=== PATIENT | male | born 1970 | race Caucasian/White ===

== ENCOUNTER 2022-06-28 15:40 | Emergency (ER) | payer BC, SELFPAY ==
[2022-06-28 15:49] VITALS: BP 165/99; PULSE 86; RESP 19; TEMP 36.7; O2SAT 96; BMI 28.7
--- NOTE | 2022-06-28 16:39 | HMH.EDGENADL ---
Discharge Plan Disposition Patient Disposition: Home, Self-Care Condition: Good Prescriptions Prescriptions: New erythromycin 5 mg/gram (0.5 %) ointment 1 applic ophthalmic (eye) TID Qty: 3.5 0RF Referrals Follow up/Referrals: Diogo Nichols MD [Primary Care Provider] - See instructions Clinical Impressions Clinical Impression: Corneal abrasion Instructions Patient Instructions: DI for Eye Pain Discharge ED Provider: Shorty Patel General Adult HPI General Chief complaint: Eye Problems Stated complaint: AO06/28 FB in LT eye Time Seen by Provider: 06/28/22 16:02 Mode of Arrival: Ambulatory Source of Information: Patient Limitations: No Limitations Description of Symptoms (Recalled from ER Triage Doc. by RN): pt comes in with c/o eye irritation. pt was cutting brush approx 1 hour prior to arrival. pt states that he feels like there is a scratch or something in his eye. pt tried to rinse eye out with natalia doris contact solution and did not have much effect. R eye 20/40. L eye 20/50 History of Present Illness HPI narrative: 52yo M presents to the ER secondary to left eye irritation. Reports he was cutting brush approximate 1 hour prior to arrival when he felt a piece of brush strike his eye. Complains of mild irritation to his left eye. Does not wear glasses or contacts. No previous eye surgery. Last saw optometry 6 months ago Related Data Previous Rx's Medication Instructions Recorded erythromycin 5 mg/gram (0.5 %) eye 1 applic ophthalmic (eye) TID #3.5 06/28/22 ointment grams Allergies Allergy/AdvReac Type Severity Reaction Status Date / Time Penicillins Allergy Verified 06/28/22 16:02 [facility] Disclaimer: The information contained in this section may have been updated after the patient was seen, as this information can be updated by other users. Social History Smoking Status: Former smoker alcohol intake: never current occupational status: employed Travel in the last 8 weeks: None ROS Obtained: Yes Systems reviewed as appropriate & no additional complaints except as documented Physical Exam General General appearance: alert and in no apparent distress Head Head exam: atraumatic Eye Eye exam: Present normal appearance, PERRL and EOMI; Absent scleral icterus, conjunctival redness or conjunctival injection Expanded Eye Exam Eyelids: bilateral: normal inspection Pupils: Bilateral: regular, round Sclera/Conjunctival: bilateral: normal inspection Anterior chamber: bilateral: normal inspection Comment: Fluorescein stain performed to the left eye. Moderate-sized corneal abrasion at 6:00 Neck Neck exam: Present full ROM and trachea midline Respiratory Respiratory exam: Present normal lung sounds bilaterally; Absent respiratory distress Cardiovascular Cardiovascular exam: Present regular rate, normal rhythm and normal heart sounds Abdominal Exam Abdominal exam: Present soft Neurological Exam Neurological exam: Present alert and oriented X3 Skin Skin exam: Present warm and dry Medical Decision Making Joel Inquiry Pt receiving controlled substance: No Vital Signs: 06/28/22 15:49 Temperature 98.0 F Temperature Source Oral Pulse Rate [Left] 86 Respiratory Rate 19 Blood Pressure [Right Arm] 165/99 H Blood Pressure Mean [Right Arm] 121 02 Sat by Pulse Oximetry 96 Medical Decision Narrative: 52-year-old male evaluated for left eye irritation after cutting brush. Visual acuity as documented above. No gross finding on exam. Fluorescein stain applied reveals moderate-sized corneal abrasion at 6 PM. Treated with erythromycin ointment in the ER and a prescription for the same provided. Stressed the importance of seeing optometry/ophthalmology before the weekend. Patient voiced understanding Procedures Eye Exam/FB Removal Location: eye (L) Topical anesthetic used: proparacaine Fluorescein Stick(s) used: Yes
[2022-06-28 17:00] VITALS: BP 151/101; PULSE 78; RESP 19; TEMP 36.7; O2SAT 97
== END 2022-06-28 17:03 | disposition home or self-care (01) ==
PROVIDERS: Emergency Provider Family Medicine; PCP Family Medicine
DX: S05.02XA Injury of conjunctiva and corneal abrasion without foreign body, left eye, initial encounter (principal); W45.8XXA Other foreign body or object entering through skin, initial encounter
CPT/HCPCS: 99283

== ENCOUNTER 2023-10-10 05:56 | Emergency (ER) | payer BC, SELFPAY ==
[2023-10-10 06:05] VITALS: BP 148/91; PULSE 74; RESP 18; TEMP 36.7; O2SAT 95; BMI 27.0
--- NOTE | 2023-10-10 06:26 | HMH.EDGENADL ---
Discharge Plan Disposition Patient Disposition: Home, Self-Care Condition: Good Prescriptions Prescriptions: New cefdinir 300 mg capsule 300 mg PO BID 5 Days Qty: 10 0RF No Action sildenafil 100 mg tablet 100 mg PO PRN Patient Comments: TAKE 1/2 TO 1 (ONE-HALF TO ONE) TABLET BY MOUTH ONCE DAILY NEEDED FOR ERECTILE DYSFUNCTION lisinopril 20 mg tablet 20 mg PO DAILY Patient Comments: TAKE 1 TABLET BY MOUTH ONCE DAILY famotidine 20 mg tablet 20 mg PO DAILY PRN ciprofloxacin-dexamethasone 0.3-0.1 % drops,suspension 4 drp otic (ear) BID 7 Days Qty: 7.5 0RF Referrals Follow up/Referrals: Diogo Nichols MD [Primary Care Provider] - See instructions Activity Restrictions/Add. Instructions Additional Instructions/Restrictions: You were evaluated in the ER. You are appropriate for discharge at this time. Continue using the prescribed Ciprodex drops as directed, do not skip doses, do not stop using them early. Take the newly prescribed cefdinir as directed, do not skip doses, do not stop taking it early. Take Tylenol and ibuprofen if needed for pain, do not exceed the recommended doses on the bottles. Make an appointment with your primary care physician for reevaluation in 2 to 3 days, return to the ER with new, worsening, or otherwise concerning symptoms. Clinical Impressions Clinical Impression: Otitis externa, Otitis media Discharge ED Provider: Shayne Beltran Adult HPI General Chief complaint: Ear Stated complaint: left ear pain Time Seen by Provider: 10/10/23 06:09 Mode of Arrival: Ambulatory Source of Information: Patient Limitations: No Limitations Description of Symptoms (Recalled from ER Triage Doc. by RN): Pt reported to ED with c/o of left earache that started two days ago that has increasingly become worse. Pt states being seen yesterday and was dx with an outer ear infection and was started on ear drops. Pt states taking the ear drops as prescribed. Pt states the pain radiates down his left jaw and neck. Pt states taking Ibuprofen [employer] approx 0400. Pt also states that his hearing sounds dull. History of Present Illness HPI narrative: 53-year-old male presents to the ER for concerns of left ear pain. Patient states he has been swelling and started having an earache 2 days ago. He was seen at a small outpatient clinic and diagnosed with an outer ear infection and started on Ciprodex eardrops. He states he is using these as prescribed. Patient states his pain has continued to worsen, he has increasing pressure in the ear and has pain when he opens his mouth that radiates from the ear down the jaw. Patient states he took ibuprofen early this morning without significant improvement. He also states he has diminished hearing in the left ear. Patient states I want to make sure my eardrum is not going to explode . No fevers or other associated symptoms. Related Data Home Medications Medication Instructions Recorded Confirmed famotidine 20 mg tablet 20 mg PO DAILY PRN 10/09/23 10/09/23 lisinopril 20 mg tablet 20 mg PO DAILY 10/09/23 10/09/23 sildenafil 100 mg tablet 100 mg PO PRN 10/09/23 10/09/23 Previous Rx's Medication Instructions Recorded ciprofloxacin 0.3 %-dexamethasone 4 drp otic (ear) BID 7 days #7.5 mL 10/09/23 0.1 % ear drops,suspension cefdinir 300 mg capsule 300 mg PO BID 5 days #10 caps 10/10/23 Allergies Allergy/AdvReac Type Severity Reaction Status Date / Time Penicillins Allergy Verified 10/09/23 13:55 [facility] Disclaimer: The information contained in this section may have been updated after the patient was seen, as this information can be updated by other users. Medical History (Updated 10/10/23 @ 06:24 by Shayne Beltran MD) Corneal abrasion Erectile dysfunction Hypertension Surgical History No significant past surgical history Family History Other No significant family history Social History Smoking Status: Never smoker alcohol intake: never current occupational status: employed Travel in the last 8 weeks: None ROS Obtained: Yes All systems reviewed & no additional complaints except as documented Constitutional Constitutional: Denies chills, Denies fever(s), Denies headache(s) and Denies weakness Eyes Eyes: Denies change in vision ENT Ears, Nose, Mouth, and Throat: Denies dizziness, Reports otalgia, Denies headache(s), Reports hearing loss, Denies nasal congestion and Denies sore throat Cardiovascular Cardiovascular: Denies chest pain, Denies dyspnea and Denies leg edema Respiratory Respiratory: Denies cough and Denies dyspnea Gastrointestinal Gastrointestingal: Denies constipation, diarrhea, nausea or vomiting Genitourinary Male Genitourinary: Denies difficulty urinating Musculoskeletal Musculoskeletal: Denies arthralgias, Denies myalgias, Denies numbness and Denies tingling Integumentary/Breasts Skin/Breast: Denies change in pigmentation Neurologic Neurologic: Denies dizziness, Denies headache(s), Denies numbness, Denies tingling and Denies weakness Physical Exam General General appearance: alert and in no apparent distress Head Head exam: atraumatic and normocephalic Eye Eye exam: Present PERRL and EOMI ENT ENT exam: Present normal oropharynx, mucous membranes moist and other (Right TM and ear exam normal, swelling of the left external ear canal, pain with manipulation of the ear and lobule, very limited exam of the left TM secondary to swelling of the canal, visualized TM is erythematous, no trismus) Neck Neck exam: Present normal inspection and full ROM Chest Chest inspection: Present symmetric chest wall rise Respiratory Respiratory exam: Absent respiratory distress or stridor Cardiovascular Cardiovascular exam: Present regular rate and normal rhythm Abdominal Exam Abdominal exam: Present soft; Absent distention or tenderness Extremities Exam Extremities exam: Present full ROM Neurological Exam Neurological exam: Present alert and oriented X3; Absent motor sensory deficit Psychiatric Psychiatric exam: Present normal affect and normal mood Skin Skin exam: Present warm and dry Medical Decision Making Medical Records Medical records reviewed: Yes I reviewed the patient's medical records. Joel Inquiry Pt receiving controlled substance: No Vital Signs: 10/10/23 06:05 Temperature 98.0 F Temperature Source Oral Pulse Rate [Left Radial] 74 Respiratory Rate 18 Blood Pressure [Right Arm] 148/91 H Blood Pressure Mean [Right Arm] 110 Blood Pressure Source [Right Arm] Automatic Cuff Blood Pressure Position [Right Arm] Supine 02 Sat by Pulse Oximetry 95 Oxygen Delivery Method Room Air Medical Decision Narrative: In summary, this 53-year-old male presents to the emergency department today with left ear pain. On initial evaluation patient is hemodynamically stable, afebrile, left external ear canal swelling with painful manipulation of the external ear and lobule, no trismus, no swelling, fluctuance, or tenderness over the mastoid, limited left TM exam however TM is erythematous. Differential diagnosis includes but is not limited to otitis externa, otitis media, I considered mastoiditis but no findings of this on exam. Patient's history of present illness and exam are most consistent with otitis externa, though I cannot fully rule out otitis media given the erythematous tympanic membrane but otherwise significantly limited exam secondary to canal swelling. Patient is already on appropriate treatment with Ciprodex for otitis externa, I did prescribe cefdinir for treatment of suspected otitis media. Patient was given instructions on symptomatic management, follow up instructions, and return precautions for the emergency department. Patient indicated understanding and was discharged in stable condition. Critical Care Critical Care Time Critical Care Time: No
[2023-10-10 06:33] VITALS: BP 144/94; PULSE 81; RESP 16; TEMP 36.6; O2SAT 98
== END 2023-10-10 06:34 | disposition home or self-care (01) ==
PROVIDERS: Emergency Provider Emergency Medicine; PCP Family Medicine
DX: H66.92 Otitis media, unspecified, left ear (principal); H60.92 Unspecified otitis externa, left ear; H92.02 Otalgia, left ear; I10 Essential (primary) hypertension
CPT/HCPCS: 99283

== ENCOUNTER 2024-02-13 13:00 | Outpatient (RCR) | payer BC, SELFPAY | END 2024-02-13 23:59 | disposition home or self-care (01) | LOC: PT 13:00 | PROVIDERS: Visit Provider Family Medicine | DX: M25.552 Pain in left hip (principal) | CPT/HCPCS: 97014; 97035; 97110; 97140; 97163; G0283 ==